=== PATIENT | female | born 2000 ===

== ENCOUNTER → 2020-04-03 | Outpatient (CLI) | payer OTHER | END | disposition home or self-care (01) | LOC: PRENATAL 16:10 | PROVIDERS: ATTEND Obstetrics & Gynecology Maternal & Fetal Medicine | DX: O26.873 Cervical shortening, third trimester (principal); O36.8131 Decreased fetal movements, third trimester, fetus 1; O26.843 Uterine size-date discrepancy, third trimester; O60.03 Preterm labor without delivery, third trimester; Z36.89 Encounter for other specified antenatal screening; Z3A.34 34 weeks gestation of pregnancy ==

== ENCOUNTER 2020-05-07 13:00 | Inpatient (IN) | payer OTHER ==
[~2020-05-07] VITALS: Ht 167.6 cm; Wt 113.4 kg
== END 2020-05-12 18:00 | disposition home or self-care (01) | DRG 807 ==
LOC: LDR 05-10 08:41 → OB/GYN 05-10 18:50 → SURH 05-18 13:00
PROVIDERS: ADMIT Obstetrics & Gynecology; ATTEND Obstetrics & Gynecology
PROC: 10E0XZZ Delivery of Products of Conception, External Approach (ICD-10-PCS; principal; 2020-05-10)
PROC: 10907ZC Drainage of Amniotic Fluid, Therapeutic from Products of Conception, Via Natural or Artificial Opening (ICD-10-PCS; 2020-05-10)
PROC: 4A1HXFZ Monitoring of Products of Conception, Cardiac Rhythm, External Approach (ICD-10-PCS; 2020-05-10)
DX: O99.824 Streptococcus B carrier state complicating childbirth (principal); Z37.0 Single live birth; O90.81 Anemia of the puerperium; D64.9 Anemia, unspecified; Z3A.39 39 weeks gestation of pregnancy

== ENCOUNTER 2020-05-09 21:46 | Outpatient (CLI) | payer OTHER | END 2020-05-10 11:17 | disposition still patient (30) | LOC: OBS/DEL 21:46 | PROVIDERS: ATTEND Obstetrics & Gynecology | DX: O47.1 False labor at or after 37 completed weeks of gestation (principal); Z20.822 Contact with and (suspected) exposure to COVID-19; Z3A.38 38 weeks gestation of pregnancy ==